=== PATIENT | male | born 1950 | race Caucasian/White ===

== ENCOUNTER 2023-09-19 09:23 | Inpatient (IN) | payer MEDICAID ==
[~2023-09-19] VITALS: Ht 172.7 cm; Wt 98.0 kg
[2023-09-19] MEDS: IV NS 0.9% 1,000 ML BAG IV ONE (09:40)
[2023-09-19 09:42] LABS: BASOPHILS # (AUTO) 0.1 K/uL (0.0-0.2); BASOPHILS % (AUTO) 0.6 % (0.0-2.0); EOSINOPHILS # (AUTO) 0.1 K/uL (0.0-0.7); EOSINOPHILS % (AUTO) 0.4 % (0.0-6.0); HEMATOCRIT 48 % (39-51); HEMOGLOBIN 15.9 g/dL (13.5-17.5); LYMPHOCYTES # (AUTO) 4.7 K/uL (0.8-4.8); LYMPHOCYTES % (AUTO) 32.4 % (20.0-44.0); MEAN CORPUSCULAR HEMOGLOBIN 30 PG (26.0-33.0); MEAN CORPUSCULAR HGB CONC 33 g/dl (31.0-36.0); MEAN CORPUSCULAR VOLUME 90 fL (80-96); MONOCYTES # (AUTO) 0.9 K/uL (0.1-1.30); NEUTROPHILS # (AUTO) 8.7 K/uL (1.8-8.9); NEUTROPHILS % (AUTO) 60.6 % (43.0-81.0); PLATELET COUNT (AUTO) 261 K/uL (150-450); RED CELL DISTRIBUTION WIDTH 13.1 % (11.5-15.0); WHITE BLOOD COUNT (AUTO) 14.4 K/uL (4.3-11.0)
[2023-09-19 09:53] LABS: PARTIAL THROMBOPLASTIN TIME 21.7 SEC (24.3-34.3); PROTHROMBIN TIME 10.6 SECS (9.2-11.1)
[2023-09-19 09:54] LABS: CALCIUM, SERUM 9.2 mg/dL (8.5-10.1); CARBON DIOXIDE 24 mmol/L (21-32); CHLORIDE 104 mmol/L (98-107); CREATININE 1.4 mg/dL (0.6-1.3); GLUCOSE 340 mg/dL (74-106); POTASSIUM 3.9 mmol/L (3.5-5.1); SODIUM SERUM 140 mmol/L (136-145); UREA NITROGEN, BLOOD 25 mg/dL (7-18)
[2023-09-19 09:59] LABS: ALANINE AMINOTRANSFERASE 19 U/L (12-78); ALBUMIN 3.5 g/dL (3.4-5.0); ALKALINE PHOSPHATASE 89 U/L (46-116); ASPARTATE AMINOTRANSFERASE 9 U/L (15-37); BILIRUBIN,DIRECT 0.2 mg/dL (0.0-0.2); BILIRUBIN,TOTAL 0.8 mg/dL (0.2-1.0); TOTAL PROTEIN, SERUM 7.6 g/dL (6.4-8.2)
[2023-09-19 09:59] LABS: APPEARANCE,URINE CLEAR (CLEAR); BILIRUBIN,URINE NEGATIVE (NEGATIVE); BLOOD, URINE NEGATIVE Ery/uL (NEGATIVE); COLOR,URINE YELLOW (YELLOW); KETONES,URINE TRACE mg/dL (NEGATIVE); LEUKOCYTE ESTERASE ,URINE NEGATIVE (NEGATIVE); NITRITE, URINE NEGATIVE (NEGATIVE); PROTEIN,URINE NEGATIVE (NEGATIVE); UGLUCOSE 3+ mg/dL (NEGATIVE); UROBILINOGEN,URINE 0.2 EU/dL (0.2)
[2023-09-19 10:01] LABS: ADD URINE CULTURE NO; BACTERIA,URINE None seen /HPF (None Seen); RBC,URINE 0-2 /HPF (0-2); SQUAMOUS EPITHELIAL CELL,UR Rare /HPF (None Seen); WBC,URINE 0-2 /HPF (0-3)
[2023-09-19 10:06] LABS: LACTIC ACID 3.6 mmol/L (0.4-2.0)
[2023-09-19] MEDS: CEFEPIME 1 GM in IV D5W 50 ML IV ONE (10:07)
[2023-09-19] MEDS ORDERED: ACETAMINOPHEN 650 MG/SUPP.RECT RC ONE (10:08)
[2023-09-19] MEDS: ACETAMINOPHEN 650 MG/SUPP.RECT RC ONE (10:52)
[2023-09-19] MEDS: VANCOMYCIN 1 GM in IV D5W 250 ML IV ONE (10:52)
[2023-09-19] MEDS ORDERED: INSULIN REGULAR, HUMAN 100 UNIT/ML 10 ML VIAL ONE (11:06)
[2023-09-19] MEDS: INSULIN REGULAR, HUMAN 100 UNIT/ML 10 ML VIAL SQ ONE (11:11)
[2023-09-19] MEDS ORDERED: ONDANSETRON HCL/PF 4 MG/2 ML VIAL IVP PRN (13:30)
[2023-09-19] MEDS ORDERED: ZOLPIDEM TARTRATE 5 MG TABLET PO PRN (13:30)
[2023-09-19] MEDS ORDERED: MAGNESIUM HYDROXIDE 30 ML UDC PO PRN (13:30)
[2023-09-19] MEDS ORDERED: MAG HYDROX/AL HYDROX/SIMETH 30 ML UDC PO PRN (13:30)
[2023-09-19] MEDS: IV 1/2NS 1000 ML 1,000 ML IV PRN (13:40)
[2023-09-19] MEDS: ENOXAPARIN SODIUM 40 MG/0.4 ML DISP.SYRIN SQ SCH (14:06)
[2023-09-19] MEDS: ACYCLOVIR IV 1 GM in IV D5W 250 ML IV SCH (14:27)
[2023-09-19 15:07] LABS: THYROID STIMULATING HORMONE 0.809 uIU/mL (0.358-3.74)
[2023-09-19] MEDS: ZOSYN IVPB 3.375 G in IV D5W 50ml IV SCH (15:32)
[2023-09-19 15:34] LABS: ABG BASE EXCESS -3.7 mmol/L; ABG OXYGEN SATURATION 96.5 % (92.0-98.5); ABG PCO2 42.6 mmHg (35.0-45.0); ABG PH 7.333 (7.350-7.450); ABG PO2 89.9 mmHg (75.0-100.0); ABG TOTAL HEMOGLOBIN 15.5 G/dL (13.5-18.0); AaDO2 146.3 mmHg; COHb 0.8 % (0.5-1.5); MetHb 0.2 % (0.0-1.5); O2Hb 95.5 % (94.0-97.0); SITE, ABG Right Radial; VENT MODE, BG 5L NC
[2023-09-19] MEDS: BLOOD SUGAR DIAGNOSTIC 1 EACH STRIP VI SCH (16:55)
[2023-09-19] MEDS ORDERED: DEXTROSE 50%-WATER 50 ML DISP.SYRIN IV PRN ×2 (17:00→18:00)
[2023-09-19] MEDS ORDERED: INSULIN REGULAR, HUMAN 100 UNIT/ML 3 ML VIAL SQ PRN (17:00)
[2023-09-19] MEDS: INSULIN REGULAR, HUMAN 100 UNIT/ML 3 ML VIAL SQ PRN (18:50)
[2023-09-19] MEDS: FLUCONAZOLE IN NS,PREMIX 400 MG in PREMIX 1 EA IV SCH (18:51)
[2023-09-19] MEDS: AMPICILLIN SODIUM 2 GM in IV NS 0.9% 100 ML IV SCH (18:51)
[2023-09-19 20:00] VITALS: BP 134/78; TEMP 98.3; O2SAT 99
[2023-09-19 20:10] VITALS: O2SAT 97
[2023-09-19] MEDS: CEFEPIME 2 GM in IV D5W 100 ML IV SCH (20:48)
[2023-09-19] MEDS: *INSULIN REGULAR(HUMULIN R)HUM 100 UNIT/ML VIAL SQ PRN (21:22)
[2023-09-19] MEDS: BLOOD SUGAR DIAGNOSTIC 1 EACH STRIP IN SCH (21:33)
[2023-09-20] VITALS (61 sets, daily range): BP systolic 91–150; BP diastolic 65–99; TEMP 102.1–103.5; O2SAT 94–100
[2023-09-20] MEDS: VANCOMYCIN 750 MG in IV D5W 250 ML IV SCH (00:15)
[2023-09-20] MEDS: LORAZEPAM INJ 2 MG/ML VIAL IV ONE (05:44)
[2023-09-20] MEDS ORDERED: LEVETIRACETAM (500MG) 500 MG/5 ML VIAL IV ONE ×2 (05:59→06:15)
[2023-09-20] MEDS: LEVETIRACETAM (500MG) 1,000 MG in IV NS 0.9% 90 ML IV ONE (06:17)
[2023-09-20] MEDS: SODIUM BICARBONATE SYR 50 MEQ/50 ML DISP.SYRIN ONE (06:25)
[2023-09-20] MEDS: SODIUM BICARBONATE SYR 50 MEQ/50 ML DISP.SYRIN IV STA (06:25)
[2023-09-20] MEDS ORDERED: Sodium Bicarbonate 100 MEQ in IV D5/0.45 NACL 1,000 ML IV PRN (06:30)
[2023-09-20] MEDS ORDERED: Sodium Bicarbonate 100 MEQ in IV D5/0.45 NACL 1,000 ML IV SCH (06:54)
[2023-09-20 07:20] LABS: BASOPHILS % (AUTO) 0.4 % (0.0-2.0); EOSINOPHILS # (AUTO) 0.1 K/uL (0.0-0.7); EOSINOPHILS % (AUTO) 0.9 % (0.0-6.0); HEMATOCRIT 42 % (39-51); HEMOGLOBIN 14.1 g/dL (13.5-17.5); LYMPHOCYTES # (AUTO) 1.4 K/uL (0.8-4.8); LYMPHOCYTES % (AUTO) 15.1 % (20.0-44.0); MEAN CORPUSCULAR HEMOGLOBIN 30 PG (26.0-33.0); MEAN CORPUSCULAR HGB CONC 34 g/dl (31.0-36.0); MEAN CORPUSCULAR VOLUME 90 fL (80-96); MONOCYTES # (AUTO) 0.6 K/uL (0.1-1.30); MONOCYTES % (AUTO) 6.4 % (2.0-12.0); NEUTROPHILS # (AUTO) 7.3 K/uL (1.8-8.9); NEUTROPHILS % (AUTO) 77.2 % (43.0-81.0); PLATELET COUNT (AUTO) 221 K/uL (150-450); RED BLOOD CELL COUNT(AUTO) 4.67 MIL/uL (4.5-6.0); RED CELL DISTRIBUTION WIDTH 13.1 % (11.5-15.0); WHITE BLOOD COUNT (AUTO) 9.4 K/uL (4.3-11.0)
[2023-09-20] MEDS: PANTOPRAZOLE 40 MG TABLET.DR PO SCH (07:30)
[2023-09-20 07:39] LABS: CALCIUM, SERUM 7.5 mg/dL (8.5-10.1); CARBON DIOXIDE 26 mmol/L (21-32); CHLORIDE 101 mmol/L (98-107); GLUCOSE 194 mg/dL (74-106); MAGNESIUM 2.1 mg/dL (1.8-2.4); POTASSIUM 3.6 mmol/L (3.5-5.1); SODIUM SERUM 136 mmol/L (136-145); UREA NITROGEN, BLOOD 12 mg/dL (7-18)
[2023-09-20] MEDS: Sodium Bicarbonate 100 MEQ in IV D5/0.45 NACL 1,000 ML IV SCH (08:55)
[2023-09-20 09:03] LABS: BASOPHILS # (AUTO) 0.1 K/uL (0.0-0.2); BASOPHILS % (AUTO) 0.5 % (0.0-2.0); EOSINOPHILS % (AUTO) 0.1 % (0.0-6.0); HEMATOCRIT 44 % (39-51); HEMOGLOBIN 14.8 g/dL (13.5-17.5); LYMPHOCYTES # (AUTO) 1.6 K/uL (0.8-4.8); LYMPHOCYTES % (AUTO) 10.2 % (20.0-44.0); MEAN CORPUSCULAR HEMOGLOBIN 31 PG (26.0-33.0); MEAN CORPUSCULAR HGB CONC 34 g/dl (31.0-36.0); MEAN CORPUSCULAR VOLUME 90 fL (80-96); MONOCYTES % (AUTO) 6.6 % (2.0-12.0); NEUTROPHILS # (AUTO) 12.8 K/uL (1.8-8.9); NEUTROPHILS % (AUTO) 82.6 % (43.0-81.0); PLATELET COUNT (AUTO) 259 K/uL (150-450); RED BLOOD CELL COUNT(AUTO) 4.86 MIL/uL (4.5-6.0); RED CELL DISTRIBUTION WIDTH 13.2 % (11.5-15.0); WHITE BLOOD COUNT (AUTO) 15.5 K/uL (4.3-11.0)
[2023-09-20 09:18] LABS: CALCIUM, SERUM 8.2 mg/dL (8.5-10.1); CREATININE 1.3 mg/dL (0.6-1.3); POTASSIUM 3.9 mmol/L (3.5-5.1)
[2023-09-20 09:24] LABS: ALBUMIN 3.1 g/dL (3.4-5.0); BILIRUBIN,TOTAL 0.8 mg/dL (0.2-1.0); TOTAL PROTEIN, SERUM 7.1 g/dL (6.4-8.2)
[2023-09-20] MEDS ORDERED: ASPIRIN 81 MG TAB.CHEW NG SCH (10:00)
[2023-09-20] MEDS: ASPIRIN 300 MG/SUPP.RECT RC SCH (10:30)
[2023-09-20] MEDS: LEVETIRACETAM (500MG) 500 MG in IV NS 0.9% 100 ML IV SCH (11:17)
[2023-09-20] MEDS ORDERED: ETOMIDATE 2 MG/ML VIAL IV ONE (11:30)
[2023-09-20 11:59] LABS: HIV-1 p24 ANTIGEN NON REACTIVE (NONREACTIVE); HIV-1/2 ANTIBODY NON REACTIVE (NONREACTIVE)
[2023-09-20] MEDS: ACETAMINOPHEN 325 MG TABLET PO PRN (12:00)
[2023-09-20 12:11] LABS: C-REACTIVE PROTEIN 1.23 mg/dL (0.0-0.30)
[2023-09-20] MEDS: CEFTRIAXONE 2 G in IV D5W 100 ML IV SCH (12:38)
[2023-09-20] MEDS: PROPOFOL 100 ML IV PRN (12:39)
[2023-09-20] MEDS ORDERED: MEROPENEM 1 G in IV NS 0.9% 100 ML IV SCH (13:00)
[2023-09-20] MEDS ORDERED: IOHEXOL-350 100 ML VIAL IV ONE (13:32)
[2023-09-20] MEDS ORDERED: IV NS 0.9% 250 ML IV ONE (13:33)
[2023-09-20] MEDS: Thiamine 250 MG in IV D5W 50 ML IV SCH (16:42)
[2023-09-20] MEDS: CYANOCOBALAMIN 1,000 MCG/ML VIAL IM SCH (18:19)
[2023-09-21] VITALS (86 sets, daily range): BP systolic 107–148; BP diastolic 56–82; TEMP 103.6–104.6; O2SAT 94–100
[2023-09-21] MEDS: VANCOMYCIN 1 GM in IV D5W 250ml IV SCH (00:57)
[2023-09-21] MEDS: ACETAMINOPHEN 650 MG/SUPP.RECT RC PRN (03:50)
[2023-09-21 05:48] LABS: ABG BASE EXCESS -16.8 mmol/L; ABG OXYGEN SATURATION 98.3 % (92.0-98.5); ABG PCO2 27.3 mmHg (35.0-45.0); ABG PH 7.179 (7.350-7.450); ABG PO2 137.6 mmHg (75.0-100.0); AaDO2 116.2 mmHg; COHb 1.2 % (0.5-1.5); MetHb 0.3 % (0.0-1.5); O2Hb 96.8 % (94.0-97.0); SITE, ABG Right Radial; VENT MODE, BG nasal cannula 5LPM
[2023-09-21 05:49] LABS: ABG BASE EXCESS -0.4 mmol/L; ABG OXYGEN SATURATION 99.1 % (92.0-98.5); ABG PCO2 37.7 mmHg (35.0-45.0); ABG PH 7.417 (7.350-7.450); ABG PO2 205.8 mmHg (75.0-100.0); ABG TOTAL HEMOGLOBIN 15.1 G/dL (13.5-18.0); AaDO2 469.5 mmHg; COHb 0.6 % (0.5-1.5); MetHb 0.3 % (0.0-1.5); O2Hb 98.2 % (94.0-97.0); PEEP,BG 5 cm H2O; SITE, ABG Right Brachial; VT, ABG 500 mL
[2023-09-21 07:08] LABS: BASOPHILS % (AUTO) 0.3 % (0.0-2.0); EOSINOPHILS % (AUTO) 0.1 % (0.0-6.0); HEMATOCRIT 37 % (39-51); HEMOGLOBIN 12.8 g/dL (13.5-17.5); LYMPHOCYTES # (AUTO) 1.5 K/uL (0.8-4.8); MEAN CORPUSCULAR HEMOGLOBIN 31 PG (26.0-33.0); MEAN CORPUSCULAR HGB CONC 35 g/dl (31.0-36.0); MEAN CORPUSCULAR VOLUME 90 fL (80-96); MONOCYTES % (AUTO) 9.5 % (2.0-12.0); NEUTROPHILS # (AUTO) 7.5 K/uL (1.8-8.9); NEUTROPHILS % (AUTO) 75.1 % (43.0-81.0); PLATELET COUNT (AUTO) 178 K/uL (150-450); RED BLOOD CELL COUNT(AUTO) 4.14 MIL/uL (4.5-6.0); RED CELL DISTRIBUTION WIDTH 13.1 % (11.5-15.0)
[2023-09-21 08:07] LABS: CALCIUM, SERUM 7.3 mg/dL (8.5-10.1); CREATININE 1.3 mg/dL (0.6-1.3); POTASSIUM 3.2 mmol/L (3.5-5.1)
[2023-09-21] MEDS: INSULIN GLARGINE, 100 UNIT/ML CARTRIDGE SQ SCH (08:34)
[2023-09-21] MEDS: Z GUARD REMEDY 4 OZ OINT TP PRN (08:48)
[2023-09-21] MEDS: POTASSIUM CHLORIDE 20 MEQ TAB.PRT.SR PO SCH (10:51)
[2023-09-21 12:29] LABS: INR 1.15 (0.91-1.10); PARTIAL THROMBOPLASTIN TIME 33.5 SEC (24.3-34.3); PROTHROMBIN TIME 12.1 SECS (9.2-11.1)
[2023-09-21] MEDS: IV NS 0.9% 250 ML IV PRN (12:43)
[2023-09-21 16:53] LABS: CSF GLUCOSE 130 mg/dL (40-70)
[2023-09-21 17:08] LABS: CSF APPEARANCE CLEAR (CLEAR); CSF COLOR COLORLESS (COLORLESS); CSF VOLUME 9.6 mL
[2023-09-21 17:25] LABS: CSF WHITE BLOOD CELL COUNT 198 /cumm (0-5)
[2023-09-21 17:27] LABS: CSF WHITE BLOOD CELL COUNT 210 /cumm (0-5)
[2023-09-22] VITALS (76 sets, daily range): BP systolic 84–159; BP diastolic 30–81; TEMP 100.2–104; O2SAT 91–99
[2023-09-22 00:06] LABS: FOLIC ACID 12.7 ng/mL (>3.0)
[2023-09-22 05:25] LABS: SODIUM SERUM 133 mmol/L (136-145)
[2023-09-22 05:27] LABS: CALCIUM, SERUM 6.4 mg/dL (8.5-10.1); CARBON DIOXIDE 31 mmol/L (21-32); CHLORIDE 97 mmol/L (98-107); CREATININE 1.3 mg/dL (0.6-1.3); GLUCOSE 187 mg/dL (74-106); UREA NITROGEN, BLOOD 17 mg/dL (7-18)
[2023-09-22 05:32] LABS: POTASSIUM 2.7 mmol/L (3.5-5.1)
[2023-09-22] MEDS: IV LR 1000 ML 1,000 ML IV PRN (07:24)
[2023-09-22 08:07] LABS: HBSAG SCREEN Negative (Negative); HEPATITIS A AB, IgM Negative (Negative); HEPATITIS B CORE AB, IgM Negative (Negative)
[2023-09-22 08:07] LABS: *EBV AB VCA, IgM <36.0 U/mL (0.0-35.9)
[2023-09-22] MEDS: POTASSIUM CL. PREMIX PERIPHER. 50 ML IV SCH (09:15)
[2023-09-22 10:06] LABS: BASOPHILS % (AUTO) 0.4 % (0.0-2.0); EOSINOPHILS % (AUTO) 0.2 % (0.0-6.0); HEMATOCRIT 33 % (39-51); LYMPHOCYTES # (AUTO) 2.2 K/uL (0.8-4.8); MEAN CORPUSCULAR HEMOGLOBIN 32 PG (26.0-33.0); MEAN CORPUSCULAR HGB CONC 36 g/dl (31.0-36.0); MEAN CORPUSCULAR VOLUME 89 fL (80-96); MONOCYTES # (AUTO) 0.8 K/uL (0.1-1.30); MONOCYTES % (AUTO) 8.5 % (2.0-12.0); NEUTROPHILS # (AUTO) 6.1 K/uL (1.8-8.9); NEUTROPHILS % (AUTO) 66.9 % (43.0-81.0); PLATELET COUNT (AUTO) 120 K/uL (150-450); RED BLOOD CELL COUNT(AUTO) 3.73 MIL/uL (4.5-6.0); WHITE BLOOD COUNT (AUTO) 9.2 K/uL (4.3-11.0)
[2023-09-22] MEDS: VANCOMYCIN 500 MG in IV D5W 100 ML IV ONE (13:02)
[2023-09-22] MEDS: LEVETIRACETAM (500MG) 1,000 MG in IV NS 0.9% 90 ML IV ONE (17:18)
[2023-09-22] MEDS: LEVETIRACETAM (500MG) 1,500 MG in IV NS 0.9% 85 ML IV SCH (21:16)
[2023-09-23] VITALS (28 sets, daily range): BP systolic 98–155; BP diastolic 61–74; TEMP 101.2–102; O2SAT 90–99
[2023-09-23 05:03] LABS: BASOPHILS # (AUTO) 0.1 K/uL (0.0-0.2); BASOPHILS % (AUTO) 0.6 % (0.0-2.0); EOSINOPHILS # (AUTO) 0.1 K/uL (0.0-0.7); HEMATOCRIT 33 % (39-51); HEMOGLOBIN 11.4 g/dL (13.5-17.5); LYMPHOCYTES # (AUTO) 2.1 K/uL (0.8-4.8); LYMPHOCYTES % (AUTO) 21.7 % (20.0-44.0); MEAN CORPUSCULAR HEMOGLOBIN 31 PG (26.0-33.0); MEAN CORPUSCULAR HGB CONC 35 g/dl (31.0-36.0); MEAN CORPUSCULAR VOLUME 88 fL (80-96); MONOCYTES # (AUTO) 0.9 K/uL (0.1-1.30); MONOCYTES % (AUTO) 9.7 % (2.0-12.0); NEUTROPHILS # (AUTO) 6.4 K/uL (1.8-8.9); PLATELET COUNT (AUTO) 108 K/uL (150-450); RED BLOOD CELL COUNT(AUTO) 3.69 MIL/uL (4.5-6.0); RED CELL DISTRIBUTION WIDTH 13.3 % (11.5-15.0); WHITE BLOOD COUNT (AUTO) 9.5 K/uL (4.3-11.0)
[2023-09-23 05:13] LABS: CALCIUM, SERUM 6.6 mg/dL (8.5-10.1); CREATININE 1.1 mg/dL (0.6-1.3)
[2023-09-23 05:21] LABS: ALBUMIN 1.9 g/dL (3.4-5.0); BILIRUBIN,TOTAL 0.6 mg/dL (0.2-1.0); MAGNESIUM 1.7 mg/dL (1.8-2.4); PHOSPHORUS 2.6 mg/dL (2.5-4.9); TOTAL PROTEIN, SERUM 5.5 g/dL (6.4-8.2)
[2023-09-23 05:25] LABS: LACTIC ACID 1.5 mmol/L (0.4-2.0)
[2023-09-23] MEDS: Magnesium 1GM/D5W 100ML PREMIX 100 ML IV SCH (06:08)
[2023-09-23] MEDS: POTASSIUM CL. PREMIX PERIPHER. 50 ML IV SCH (06:08)
[2023-09-23] MEDS ORDERED: PHENYTOIN SODIUM IV 100 MG/2ML VIAL IV SCH ×2 (17:00→21:00)
[2023-09-23] MEDS: phenytoin SODIUM IV 1,000 MG in IV NS 0.9% 100 ML IV ONE (17:03)
[2023-09-23] MEDS: GLUCERNA 1.2 1,000 ML BOTTLE NG PRN (18:05)
[2023-09-23] MEDS: PHENYTOIN SODIUM IV 100 MG/2ML VIAL IV SCH (20:31)
[2023-09-24] VITALS (28 sets, daily range): BP systolic 102–135; BP diastolic 58–78; TEMP 98.4–100; O2SAT 91–100
[2023-09-24 02:02] LABS: CSF APPEARANCE CLEAR (CLEAR); CSF COLOR COLORLESS (COLORLESS); CSF VOLUME 20.5 mL
[2023-09-24 02:13] LABS: CSF GLUCOSE 102 mg/dL (40-70)
[2023-09-24 02:26] LABS: CSF WHITE BLOOD CELL COUNT 18 /cumm (0-5)
[2023-09-24 02:28] LABS: CSF WHITE BLOOD CELL COUNT 32 /cumm (0-5)
[2023-09-24 04:54] LABS: BASOPHILS # (AUTO) 0.1 K/uL (0.0-0.2); BASOPHILS % (AUTO) 0.8 % (0.0-2.0); EOSINOPHILS # (AUTO) 0.1 K/uL (0.0-0.7); HEMATOCRIT 31 % (39-51); HEMOGLOBIN 11.1 g/dL (13.5-17.5); LYMPHOCYTES # (AUTO) 1.6 K/uL (0.8-4.8); LYMPHOCYTES % (AUTO) 19.7 % (20.0-44.0); MEAN CORPUSCULAR HEMOGLOBIN 32 PG (26.0-33.0); MEAN CORPUSCULAR HGB CONC 36 g/dl (31.0-36.0); MEAN CORPUSCULAR VOLUME 88 fL (80-96); MONOCYTES # (AUTO) 0.7 K/uL (0.1-1.30); NEUTROPHILS # (AUTO) 5.7 K/uL (1.8-8.9); NEUTROPHILS % (AUTO) 69.5 % (43.0-81.0); PLATELET COUNT (AUTO) 100 K/uL (150-450); RED BLOOD CELL COUNT(AUTO) 3.49 MIL/uL (4.5-6.0); RED CELL DISTRIBUTION WIDTH 12.9 % (11.5-15.0); WHITE BLOOD COUNT (AUTO) 8.2 K/uL (4.3-11.0)
[2023-09-24 05:11] LABS: ALBUMIN 1.7 g/dL (3.4-5.0); BILIRUBIN,TOTAL 0.7 mg/dL (0.2-1.0); CALCIUM, SERUM 7.2 mg/dL (8.5-10.1); POTASSIUM 3.2 mmol/L (3.5-5.1); TOTAL PROTEIN, SERUM 5.2 g/dL (6.4-8.2)
[2023-09-24] MEDS ORDERED: ACYCLOVIR IV 500 MG VIAL IV ONE (05:15)
[2023-09-24] MEDS: ASPIRIN 81 MG TAB.CHEW NG SCH (08:17)
[2023-09-24] MEDS: HYDROCODONE/APAP 5/325MG TABLET PO PRN (08:36)
[2023-09-24] MEDS ORDERED: MAG HYDROX/AL HYDROX/SIMETH 30 ML UDC NG PRN (09:39)
[2023-09-24] MEDS ORDERED: HYDROCODONE/APAP 5/325MG TABLET NG PRN (09:40)
[2023-09-24] MEDS ORDERED: MAGNESIUM HYDROXIDE 30 ML UDC NG PRN (09:40)
[2023-09-24] MEDS: POTASSIUM CHLORIDE 20 MEQ POWDER PACKET NG SCH (10:13)
[2023-09-24] MEDS ORDERED: IOHEXOL-300 100 ML VIAL IV ONE (11:37)
[2023-09-24] MEDS ORDERED: IV NS 0.9% 250 ML IV ONE (11:37)
[2023-09-24] MEDS: LORAZEPAM INJ 2 MG/ML VIAL IV PRN (11:40)
[2023-09-24] MEDS: Thiamine 250 MG in IV D5W 50 ML IV SCH (14:42)
[2023-09-24] MEDS: ATORVASTATIN 40 MG TABLET PO SCH (22:31)
[2023-09-25] VITALS (28 sets, daily range): BP systolic 100–135; BP diastolic 54–75; TEMP 98.4–98.8; O2SAT 91–98
[2023-09-25 05:29] LABS: BASOPHILS % (AUTO) 0.7 % (0.0-2.0); EOSINOPHILS # (AUTO) 0.2 K/uL (0.0-0.7); EOSINOPHILS % (AUTO) 3.9 % (0.0-6.0); HEMATOCRIT 30 % (39-51); HEMOGLOBIN 10.4 g/dL (13.5-17.5); LYMPHOCYTES # (AUTO) 1.4 K/uL (0.8-4.8); LYMPHOCYTES % (AUTO) 23.2 % (20.0-44.0); MEAN CORPUSCULAR HEMOGLOBIN 31 PG (26.0-33.0); MEAN CORPUSCULAR HGB CONC 35 g/dl (31.0-36.0); MEAN CORPUSCULAR VOLUME 90 fL (80-96); MONOCYTES # (AUTO) 0.5 K/uL (0.1-1.30); MONOCYTES % (AUTO) 8.4 % (2.0-12.0); NEUTROPHILS # (AUTO) 3.9 K/uL (1.8-8.9); NEUTROPHILS % (AUTO) 63.8 % (43.0-81.0); PLATELET COUNT (AUTO) 132 K/uL (150-450); RED BLOOD CELL COUNT(AUTO) 3.31 MIL/uL (4.5-6.0); WHITE BLOOD COUNT (AUTO) 6.1 K/uL (4.3-11.0)
[2023-09-25 06:06] LABS: ALANINE AMINOTRANSFERASE 35 U/L (12-78); ALBUMIN 1.6 g/dL (3.4-5.0); ALKALINE PHOSPHATASE 154 U/L (46-116); ASPARTATE AMINOTRANSFERASE 37 U/L (15-37); BILIRUBIN,TOTAL 0.3 mg/dL (0.2-1.0); CALCIUM, SERUM 7.3 mg/dL (8.5-10.1); CARBON DIOXIDE 28 mmol/L (21-32); CHLORIDE 102 mmol/L (98-107); GLUCOSE 228 mg/dL (74-106); POTASSIUM 3.2 mmol/L (3.5-5.1); SODIUM SERUM 135 mmol/L (136-145); UREA NITROGEN, BLOOD 9 mg/dL (7-18)
[2023-09-25] MEDS: POTASSIUM CHLORIDE 20 MEQ POWDER PACKET GT ONE ×2 (08:45→10:55)
[2023-09-25] MEDS ORDERED: POTASSIUM CL. PREMIX PERIPHER. 50 ML IV SCH (10:30)
[2023-09-25] MEDS ORDERED: EPINEPHRINE (1:10,000) SYRINGE 1 MG/10 ML DISP.SYRIN ONE (19:42)
[2023-09-26 11:26] LABS: *WEST NILE VIRUS IgG, CSF Negative (Negative); *WEST NILE VIRUS IgM, CSF Negative (Negative)
[2023-09-26 23:11] LABS: *HIV-1 RNA BY PCR <20 copies/mL (.)
[2023-09-27 10:07] LABS: RAPID PLASMA REAGIN QUAL. Non Reactive (Non Reactive)
[2023-09-27 14:07] LABS: VITAMIN B1 THIAMINE,WB 174.7 nmol/L (66.5-200.0)
[2023-09-27 16:12] LABS: *HSV 1 DNA PCR Negative (Negative); *HSV 2 DNA PCR Negative (Negative)
== END 2023-09-25 20:30 | disposition short-term general hospital (02) | DRG 49 ==
LOC: ER 09:32 → TELE 12:07 → ICU 09-20 07:15
PROVIDERS: ATTEND Internal Medicine
PROC: 5A1955Z Respiratory Ventilation, Greater than 96 Consecutive Hours (ICD-10-PCS; principal; 2023-09-20)
PROC: 0BH17EZ Insertion of Endotracheal Airway into Trachea, Via Natural or Artificial Opening (ICD-10-PCS; 2023-09-20)
PROC: 05HC33Z Insertion of Infusion Device into Left Basilic Vein, Percutaneous Approach (ICD-10-PCS; 2023-09-20)
PROC: B54NZZA Ultrasonography of Left Upper Extremity Veins, Guidance (ICD-10-PCS; 2023-09-20)
PROC: 009U3ZX Drainage of Spinal Canal, Percutaneous Approach, Diagnostic (ICD-10-PCS; 2023-09-21)
PROC: B01BYZZ Fluoroscopy of Spinal Cord using Other Contrast (ICD-10-PCS; 2023-09-21)
PROC: 02HV33Z Insertion of Infusion Device into Superior Vena Cava, Percutaneous Approach (ICD-10-PCS; 2023-09-21)
PROC: B548ZZA Ultrasonography of Superior Vena Cava, Guidance (ICD-10-PCS; 2023-09-21)
PROC: 009U3ZX Drainage of Spinal Canal, Percutaneous Approach, Diagnostic (ICD-10-PCS; 2023-09-23)
PROC: B01BYZZ Fluoroscopy of Spinal Cord using Other Contrast (ICD-10-PCS; 2023-09-23)
DX: G00.9 Bacterial meningitis, unspecified (principal); J96.00 Acute respiratory failure, unspecified whether with hypoxia or hypercapnia; I63.9 Cerebral infarction, unspecified; G93.41 Metabolic encephalopathy; E87.1 Hypo-osmolality and hyponatremia; E11.65 Type 2 diabetes mellitus with hyperglycemia; D72.829 Elevated white blood cell count, unspecified; G40.909 Epilepsy, unspecified, not intractable, without status epilepticus; N17.9 Acute kidney failure, unspecified; E86.9 Volume depletion, unspecified; E87.20 Acidosis, unspecified; E87.6 Hypokalemia; I10 Essential (primary) hypertension; Z79.4 Long term (current) use of insulin; Z79.82 Long term (current) use of aspirin; Z95.5 Presence of coronary angioplasty implant and graft; Z99.11 Dependence on respirator [ventilator] status; I25.10 Atherosclerotic heart disease of native coronary artery without angina pectoris; E66.9 Obesity, unspecified; Z68.32 Body mass index [BMI] 32.0-32.9, adult; I50.9 Heart failure, unspecified; J32.9 Chronic sinusitis, unspecified; A87.9 Viral meningitis, unspecified
CPT/HCPCS: 31720; 36410; 36415; 36569; 36600; 62270; 70450-TC; 70460-TC; 70496-TC; 70498-TC; 71045-TC; 80048-TC; 80053-TC; 80061-TC; 80076-TC; 80202-TC; 81001; 82607-TC; 82803-TC; 82962-TC; 83605-TC; 83735-TC; 83921; 84100-TC; 84425; 84443-TC; 84478-TC; 84484-TC; 85025-TC; 85378-TC; 85652-TC; 85730-TC; 86140-TC; 86592; 86593; 86664; 86788; 86789; 86803; 87040-TC; 87086-TC; 87102-TC; 87536; 87806; 87899; 89051-TC; 93307-TC; 94002-TC; 94003-TC; 94761-TC; 94762-TC; 94799-TC; 95819-TC; 99082-TC; A4216; A4223; G0378; J0133; J0171; J0290; J0330; J0692; J0696; J1165; J1450; J1650; J1815; J1953; J2060; J2185; J2543; J3370; J3371; J3411; J3420; J3475; J3480; J3490; J7030; J7050; J7060; J7120; Q9967

== ENCOUNTER 2023-12-29 22:39 | Emergency (ER) | payer MEDICAID, OTHER ==
[~2023-12-29] VITALS: Ht 182.9 cm; Wt 73.5 kg
--- NOTE | 2023-12-29 22:55 | NUR ---
RUFINA 89 C/O ALTERED MENTAL STATUS NOTICED BY FAMILY AT 2155, PLACED TO BED AND HOOKED INTO A MONITOR
--- NOTE | 2023-12-29 22:57 | NUR ---
CODE STROKE ACTIVATED
--- NOTE | 2023-12-29 22:59 | NUR ---
PT TAKEN TO CT
[2023-12-29] MEDS: IV NS 0.9% 500 ML BAG IV ONE (23:00)
--- NOTE | 2023-12-29 23:10 | NUR ---
INSERTED IV CANNULA G 20 R AC, BLOOD DRAWN SENT TO LAB
[2023-12-29 23:18] LABS: BASOPHILS # (AUTO) 0.1 K/uL (0.0-0.2); BASOPHILS % (AUTO) 0.8 % (0.0-2.0); EOSINOPHILS # (AUTO) 0.3 K/uL (0.0-0.7); EOSINOPHILS % (AUTO) 3.6 % (0.0-6.0); HEMATOCRIT 36 % (39-51); HEMOGLOBIN 12.3 g/dL (13.5-17.5); LYMPHOCYTES % (AUTO) 39.7 % (20.0-44.0); MEAN CORPUSCULAR HEMOGLOBIN 31 PG (26.0-33.0); MEAN CORPUSCULAR HGB CONC 35 g/dl (31.0-36.0); MEAN CORPUSCULAR VOLUME 89 fL (80-96); MONOCYTES # (AUTO) 0.5 K/uL (0.1-1.30); MONOCYTES % (AUTO) 6.9 % (2.0-12.0); NEUTROPHILS # (AUTO) 3.7 K/uL (1.8-8.9); PLATELET COUNT (AUTO) 246 K/uL (150-450); RED CELL DISTRIBUTION WIDTH 13.2 % (11.5-15.0); WHITE BLOOD COUNT (AUTO) 7.6 K/uL (4.3-11.0)
--- NOTE | 2023-12-29 23:24 | NUR ---
PT RETURNED TO ER [address]
--- NOTE | 2023-12-29 23:26 | NUR ---
PT ON TELE PENDING SALE TO [facility] CALL WITH NEUROLOGIST RONDA KLINE
[2023-12-29 23:27] LABS: CALCIUM, SERUM 8.8 mg/dL (8.5-10.1); CARBON DIOXIDE 27 mmol/L (21-32); CHLORIDE 102 mmol/L (98-107); CREATININE 1.2 mg/dL (0.6-1.3); GLUCOSE 162 mg/dL (74-106); POTASSIUM 3.9 mmol/L (3.5-5.1); SODIUM SERUM 139 mmol/L (136-145); UREA NITROGEN, BLOOD 15 mg/dL (7-18)
[2023-12-29 23:33] LABS: ALANINE AMINOTRANSFERASE 19 U/L (12-78); ALKALINE PHOSPHATASE 61 U/L (46-116); ASPARTATE AMINOTRANSFERASE 12 U/L (15-37); BILIRUBIN,DIRECT 0.1 mg/dL (0.0-0.2); BILIRUBIN,TOTAL 0.3 mg/dL (0.2-1.0); INR 1.07 (0.91-1.10); PARTIAL THROMBOPLASTIN TIME 25.4 SEC (24.3-34.3); PROTHROMBIN TIME 11.3 SECS (9.2-11.1); TOTAL PROTEIN, SERUM 6.7 g/dL (6.4-8.2)
[2023-12-29 23:35] LABS: LACTIC ACID 1.2 mmol/L (0.4-2.0)
--- NOTE | 2023-12-29 23:35 | NUR ---
URINE SPECIMEN COLLECTED SENT TO LAB
[2023-12-29 23:45] LABS: APPEARANCE,URINE CLEAR (CLEAR); BILIRUBIN,URINE NEGATIVE (NEGATIVE); BLOOD, URINE NEGATIVE Ery/uL (NEGATIVE); COLOR,URINE YELLOW (YELLOW); KETONES,URINE NEGATIVE (NEGATIVE); LEUKOCYTE ESTERASE ,URINE NEGATIVE (NEGATIVE); NITRITE, URINE NEGATIVE (NEGATIVE); PROTEIN,URINE NEGATIVE (NEGATIVE); UGLUCOSE NEGATIVE (NEGATIVE); UROBILINOGEN,URINE 0.2 EU/dL (0.2)
[2023-12-30 00:02] LABS: AMPHETAMINE, URINE NEGATIVE (NEGATIVE); BARBITURATE, URINE NEGATIVE (NEGATIVE); BENZODIAZEPINE, URINE NEGATIVE (NEGATIVE); CANNABINOID, URINE NEGATIVE (NEGATIVE); COCCAINE, URINE NEGATIVE (NEGATIVE); OPIATE, URINE NEGATIVE (NEGATIVE); PHENCYCLIDINE SCREEN,URINE NEGATIVE (NEGATIVE)
--- NOTE | 2023-12-30 02:27 | NUR ---
WILLIAM PRES 626 FOR REPORT #[phone] [facility] ETA [id number]
--- NOTE | 2023-12-30 03:03 | NUR ---
REPORT GIVEN TO WILLIAM SUH
--- NOTE | 2023-12-30 03:10 | NUR ---
PATIENT PASSED LARGE AMOUNT OF URINE ON A DIAPER, PERINEAL CARE DONE NEW DIAPER PROVIDED.
--- NOTE | 2023-12-30 03:54 | NUR ---
REPORT GIVEN TO [facility]DE [facility].
[2023-12-30 03:55] VITALS: BP 142/83; TEMP 98; O2SAT 96
--- NOTE | 2023-12-30 03:55 | NUR ---
Patient discharged to [facility] in stable condition.
== END 2023-12-30 03:56 | disposition short-term general hospital (02) ==
LOC: ER 22:51
DX: G93.40 Encephalopathy, unspecified (principal); I10 Essential (primary) hypertension
CPT/HCPCS: 99291; 70498; 71045; 93005; 70496; 85025; 80048; 87040; 83605; 80076; 36415 ×2; 84484; 85730; 86850; 82962; 80307; 81003; 70450; J7040